=== PATIENT | female | born 1955 | race Caucasian/White ===

== ENCOUNTER 2019-09-12 13:54 | Outpatient (CLI) | payer OTHER | END 2019-09-12 23:59 | disposition home or self-care (01) | LOC: CFH 13:54 | PROVIDERS: ATTEND Nurse Practitioner | DX: Z12.31 Encounter for screening mammogram for malignant neoplasm of breast (principal) | CPT/HCPCS: 77063; 77067 ==

== ENCOUNTER 2019-11-18 10:19 | Emergency (ER) | payer OTHER ==
[~2019-11-18] VITALS: Ht 172.7 cm; Wt 88.9 kg
[2019-11-18] MEDS ORDERED: SODIUM CHLORIDE 0.9% 1,000 ML IV ONE (10:41)
[2019-11-18] MEDS ORDERED: SODIUM CHLORIDE FLUSH 10ML SYR IVF ONE (11:00)
[2019-11-18] MEDS ORDERED: HYDROmorphone 2 MG/ML, 1ML IVPush PRN (11:00)
[2019-11-18] MEDS ORDERED: ONDANSETRON 2MG/ML, 2ML IVPush ONE (11:00)
[2019-11-18] MEDS ORDERED: ONDANSETRON 2MG/ML, 2ML ONE (11:11)
[2019-11-18] MEDS ORDERED: HYDROmorphone 1 MG/ML, 1ML INJ ONE (11:11)
--- NOTE | 2019-11-18 11:18 | NUR ---
PIV STARTED, LABS DRAWN, PT MEDICATED PER EMAR. PT RESTING ON GURNEY W/ CALL LIGHT IN REACH. RESP EVEN AND UNLABORED, JOE.
[2019-11-18 11:22] LABS: BASOPHILS % (AUTO) 1 % (0-1); EOSINOPHILS % (AUTO) 1 % (1-7); LYMPHOCYTES % (AUTO) 15 % (22-44); MEAN CORPUSCULAR HEMOGLOBIN 32.9 pg (27.0-34.8); MEAN CORPUSCULAR HGB CONC 33.3 g/dL (32.4-35.8); MEAN PLATELET VOLUME 6.4 fL (7.4-10.4); MONOCYTES % (AUTO) 9 % (2-9); NEUTROPHILS % (AUTO) 75 % (42-75); PLATELET COUNT 224 x10^3/uL (130-400); RED BLOOD COUNT 4.51 x10^6/uL (3.82-5.3); RED CELL DISTRIBUTION WIDTH 14.3 % (9.6-15.2)
[2019-11-18 11:23] LABS: MD NO
[2019-11-18 11:25] LABS: MICROSCOPIC NOT IND
[2019-11-18 11:32] LABS: ANION GAP 5 mmol/L (5-15); CALCIUM 8.8 mg/dL (8.5-10.1); CHLORIDE 107 mmol/L (98-107)
[2019-11-18 11:33] LABS: ALANINE AMINOTRANSFERASE 17 U/L (12-78); ALBUMIN 3.6 g/dL (3.4-5.0)
[2019-11-18 11:35] LABS: ALKALINE PHOSPHATASE 53 U/L (45-117); BILIRUBIN,TOTAL 0.9 mg/dL (0.2-1.0); TOTAL PROTEIN 7.4 g/dL (6.4-8.2)
--- NOTE | 2019-11-18 12:01 | NUR ---
PT TO CT.
[2019-11-18] MEDS ORDERED: OMNIPAQUE 350 MG/ML, 100ML BOTTLE ONE (12:13)
--- NOTE | 2019-11-18 12:16 | NUR ---
PT REPORTS RELIEF OF PAIN AFTER MEDS. PT RESTING ON GURNEY W/ CALL LIGHT IN REACH AND FAMILY AT BEDSIDE. VSArabella, JOE. AWAITING CT RESULTS.
--- NOTE | 2019-11-18 12:30 | NUR ---
ALL TESTS RESULTED. PT IS UP FOR RECHECK AT THIS TIME.
--- NOTE | 2019-11-18 12:51 | NUR ---
AT BEDSIDE FOR RECHECK.
[2019-11-18 12:54] VITALS: BP 129/76
[2019-11-18] MEDS ORDERED: CIPROFLOXACIN 500 MG TABLET ONE (12:59)
[2019-11-18] MEDS ORDERED: METRONIDAZOLE PMX 500MG/100ML 100 ML ONE (12:59)
[2019-11-18] MEDS ORDERED: METRONIDAZOLE PMX 500MG/100ML 100 ML IVPB ONE (13:00)
[2019-11-18] MEDS ORDERED: CIPROFLOXACIN 500 MG TABLET PO ONE (13:00)
--- NOTE | 2019-11-18 13:05 | NUR ---
ABX STARTED. PT RESTING ON [employer] [employer] W/ CALL LIGHT IN REACH, VSS, NADN.
--- NOTE | 2019-11-18 14:39 | NUR ---
Patient given discharge instructions and they have confirmed that they understand the instructions. Patient ambulatory with steady gait.
== END 2019-11-18 14:40 | disposition home or self-care (01) ==
LOC: ED 11:20
DX: K57.32 Diverticulitis of large intestine without perforation or abscess without bleeding (principal)
CPT/HCPCS: 36415; 74177; 80053; 81003; 83605; 83690; 85025; 96361; 96365; 96366; 96375; 99285; J1170; J2405; J7030; Q9967